=== PATIENT | female | born 1990 | race Caucasian/White ===

== ENCOUNTER 2017-04-09 22:38 | Emergency (ER) | payer OTHER ==
[~2017-04-09] VITALS: Ht 175.3 cm; Wt 75.0 kg
[~2017-04-09 22:38] MED LIST: ACETAMINOPHEN500 M5 PO; BACTRIM DS 8001 TA1 PO; CLEOCIN HCL300 MG PO; KETOROLAC10 MG PO; LEVAQUIN 750MG750 M1 PO; MOTRIN PO; NORCO 325 MG-51 TA1 PO; PYRIDIUM200 M1 PO
[2017-04-10 00:49] VITALS: BP 132/67
== END 2017-04-10 00:49 ==
LOC: ED 22:38
DX: S13.4XXA Sprain of ligaments of cervical spine, initial encounter (principal); S09.90XA Unspecified injury of head, initial encounter; V48.1XXA Car passenger injured in noncollision transport accident in nontraffic accident, initial encounter; Y92.488 Other paved roadways as the place of occurrence of the external cause

== ENCOUNTER 2019-05-11 19:54 | Emergency (ER) | payer BC ==
[2019-05-11] MEDS ORDERED: ISIBLOOM 28 DA1 EACH PO (20:06)
[2019-05-11] MEDS ORDERED: EC-NAPROXEN500 MG PO (23:34)
[2019-05-11] MEDS ORDERED: PREDNISONE10 MG PO (23:34)
[2019-05-11] MEDS ORDERED: CYCLOBENZAPRINE10 M1 PO (23:34)
[2019-05-11 23:44] VITALS: BP 117/62
== END 2019-05-11 23:44 | disposition home or self-care (01) ==
LOC: ED 19:54
DX: M54.16 Radiculopathy, lumbar region (principal); G89.29 Other chronic pain; M54.9 Dorsalgia, unspecified; K21.9 Gastro-esophageal reflux disease without esophagitis; F17.210 Nicotine dependence, cigarettes, uncomplicated; Z90.89 Acquired absence of other organs
CPT/HCPCS: J1100; J1885